=== PATIENT | female | born 1960 | race Caucasian/White ===

== ENCOUNTER 2023-04-08 06:20 | Day surgery (SDC) | payer OTHER ==
[~2023-04-08] VITALS: Ht 157.5 cm; Wt 74.8 kg
[2023-04-08] MEDS ORDERED: MIDAZOLAM 5 MG/5 ML VIAL ONE (07:27)
[2023-04-08] MEDS ORDERED: fentaNYL citrate 0.05 MG/ML VIAL ONE (07:27)
[2023-04-08] MEDS ORDERED: diphenhydrAMINE 50 MG/ML VIAL ONE (07:27)
[2023-04-08] MEDS ORDERED: fentaNYL citrate 0.05 MG/ML VIAL IVP ONE (07:50)
[2023-04-08] MEDS ORDERED: MIDAZOLAM 5 MG/5 ML VIAL IV ONE (07:50)
== END 2023-04-08 09:20 | disposition home or self-care (01) ==
LOC: MDS 06:20 → MMU 06:21 → MDS 09:20
PROVIDERS: ATTEND Internal Medicine Gastroenterology
DX: K21.9 Gastro-esophageal reflux disease without esophagitis (principal); K31.89 Other diseases of stomach and duodenum; K25.9 Gastric ulcer, unspecified as acute or chronic, without hemorrhage or perforation; K29.70 Gastritis, unspecified, without bleeding; Z90.710 Acquired absence of both cervix and uterus
CPT/HCPCS: 43239; J2250; J3010; J1200